=== PATIENT | male | born 1975 | race Caucasian/White ===

== ENCOUNTER 2020-11-07 04:20 | Day surgery (SDC) | payer OTHER, SELFPAY ==
[2020-10-30 14:05] VITALS: BMI 25.7
--- NOTE | 2020-11-07 09:17 | WPDANESEPPF ---
Anes - Initial Pre Proc Eval Procedure: Operation Date: 11/07/20 12:15 Proposed Procedures p Esophagogastroduodenoscopy - Chapo Mills MD Date/Time: 11/07/20 09:17 Surgeon: Chapo Mills MD Pre Op Diagnosis: dysphagia Patient Data Age: 45 Gender: M Height: 1.83 m Weight: 86 kg Allergies Allergy/AdvReac Type Severity Reaction Status Date / Time Penicillins Allergy Severe EYES SWELL Verified 11/07/20 11:15 SHUT Home Medications Medication Instructions Recorded Confirmed Type pantoprazole 40 mg tablet,delayed 40 mg PO QAM #30 tablet 10/02/20 10/30/20 Rx release Patient hx anesthesia problems: none Family hx anesthesia problems: none [facility] Past Medical History Medical History (Updated 11/07/20 @ 09:17 by Javan Swartz MD) Chronic GERD Social History Social History (Updated 10/02/20 @ 14:26 by Mary Kay Hoffman CMA) Smoking status: Never smoker Alcohol intake: current Alcohol use details: socially Substance use: never Substance use type: does not use Living arrangements: with friend(s) Spiritual care concerns: No Anes - Eval Final PreProcedure Day of Procedure 11/07/20 09:17 Patient weight: overweight Heart: regular rate and rhythm Lungs: clear to auscultation and normal air movement Airway: Mallampati scale class II Neurological: alert and oriented Last oral intake: >/= 8 hours ASA classification: II Emergent: no Anesthetic plan: proceed Anesthesia type and monitoring: general GIVS Informed Consent: The patient's anesthetic plan and its attendant risks and benefits were discussed with the patient/family/POA. Questions were solicited and answers provided to the satisfaction of the patient/family/POA.
[2020-11-07 11:17] VITALS: BP 122/74; PULSE 64; RESP 18; TEMP 36.6; O2SAT 100
[2020-11-07] MEDS: LACTATED RINGERS 1,000 ML 150 ML IV CONT (11:22)
--- NOTE | 2020-11-07 12:00 | P.HP_ITS ---
History of Present Illness History of Present Illness Consent: Risks, benefits, and alternatives have been discussed and questions answered. Patient agrees to proceed with procedure. Chief complaint: dysphagia Narrative: Patrick Varma is a 45 year old male with dysphagia to solids better since started using protonix but never had EGD Review of Systems Constitutional: Constitutional: Denies headache(s) and Denies weakness Eyes: Eyes: Denies blurry vision ENT: Reports Normal hearing present, Denies headache(s) and Denies neck pain Cardiovascular: Cardiovascular: Denies chest pain and Denies dyspnea Respiratory: Respiratory: Denies dyspnea Gastrointestinal: Gastrointestinal: Reports no additional gastrointestinal complaints Genitourinary: Genitourinary: Denies dysuria Musculoskeletal: Musculoskeletal: Denies neck pain Integumentary/Breasts: Skin/Breast: Denies dry skin Neurologic: Reports Normal hearing present, Denies headache(s) and Denies weakness Psychiatric: Psychiatric: Denies anxiety Endocrine: Endocrine: Denies change in body appearance Hematologic/Lymphatic: Hematologic/Lymphatic: Denies easy bleeding Allergic/Immunologic: Allergic/Immunologic: Denies urticaria [facility] Past Medical History Medical History (Updated 11/07/20 @ 12:01 by Chapo Mills MD) Chronic GERD Dysphagia Social History Social History (Updated 10/02/20 @ 14:26 by Mary Kay Hoffman CMA) Smoking status: Never smoker Alcohol intake: current Alcohol use details: socially Substance use: never Substance use type: does not use Living arrangements: with friend(s) Spiritual care concerns: No Meds Home Medications and Allergies Home Medications Medication Instructions Recorded Confirmed Type pantoprazole 40 mg tablet,delayed 40 mg PO QAM #30 tablet 10/02/20 10/30/20 Rx release Allergies Allergy/AdvReac Type Severity Reaction Status Date / Time Penicillins Allergy Severe EYES SWELL Verified 11/07/20 11:15 SHUT Vital Signs Vital Signs - 24 hr 11/07/20 11:17 Temperature 97.8 F Pulse Rate 64 Respiratory Rate 18 Blood Pressure 122/74 Pulse Oximetry 100 Exam Const: General: comfortable and no acute distress HENMT: General nose exam: Normal nares present Eyes: General: appearance normal, both eyes and all related structures Neck: Neck: no JVD Resp: Auscultation: clear to auscultation bilaterally Cardio: Rate: regular rate Rhythm: regular rhythm GI: Inspection: non-distended GI Palp: Yes Soft to palpation Skin: General skin exam: normal color Neuro: General: gait normal Speech: normal speech Extrem: General: normal to inspection Psych: Mental Status: mental status grossly normal Assessment and Plan Assessment and plan (1) Dysphagia: Code(s): R13.10 - Dysphagia, unspecified Status: Acute Assessment and Plan: egd with bx
[2020-11-07 12:20] VITALS: BP 120/81; PULSE 81; RESP 24; O2SAT 99
[2020-11-07 12:30] VITALS: BP 120/84; PULSE 70; RESP 23; O2SAT 100
[2020-11-07 12:40] VITALS: BP 125/88; PULSE 64; RESP 20; O2SAT 100
== END 2020-11-07 12:45 | disposition home or self-care (01) ==
PROVIDERS: PCP Internal Medicine; Visit Provider Internal Medicine Gastroenterology
PROC: 0DJ08ZZ Inspection of Upper Intestinal Tract, Via Natural or Artificial Opening Endoscopic (ICD-10-PCS; CPT 43235; principal; 2020-11-07 12:15)
DX: R13.10 Dysphagia, unspecified (principal); K22.2 Esophageal obstruction; K21.00 Gastro-esophageal reflux disease with esophagitis, without bleeding; K44.9 Diaphragmatic hernia without obstruction or gangrene
CPT/HCPCS: 43249; 43239; 88305; C1726; J2704; J7120